=== PATIENT | female | born 1935 | race Caucasian/White ===

== ENCOUNTER → 2022-08-15 | Day surgery (SDC) | payer MEDICARE, MEDICAID ==
[~2022-08-15] VITALS: Ht 154.9 cm; Wt 60.8 kg
[~2022-08-15] MED LIST: ACETAMINOPHEN 325MG TABLET PO PRN; APIX5TAB4 PO; ASPI-1160 MT; ASPIRIN/SOD BICARB/CITRIC ACID 324MG TAB EFF ONE; ATOR20TA MT; ATROPINE SULFATE 1MG/10ML SYR IV PRN; FAMO40TA7 PO; FENTANYL CITRATE/PF 50MCG/ML 2ML VIAL ONE; HEPARIN SODIUM 1,000 UNIT/1ML VIAL IV ONE; HYDR12.54 MT; IODIXANOL 320MG/ML 100 ML BOTTLE IV ONE; LIDOCAINE HCL/PF 2% 20MG/ML 5 ML/VIAL ONE; LOSA100T32 MT; METF-414 PO; METF-873 MT; MIDAZOLAM HCL 2 MG/2 ML VIAL ONE; NICARDIPINE 100MCG/ML 10ML VIAL (CATH LAB) IV ONE; NITROGLYCERIN 50MCG/ML 10ML VIAL (CATH LAB) IV ONE; ONDANSETRON HCL 4MG/2ML INJ IV PRN; VERAPAMIL HCL 2.5 MG/1 ML 2ML VIAL IV ONE
== END | disposition home or self-care (01) ==
LOC: CCL 07:54
PROVIDERS: ATTEND Specialist
DX: I25.10 Atherosclerotic heart disease of native coronary artery without angina pectoris (principal); I10 Essential (primary) hypertension; E78.5 Hyperlipidemia, unspecified; E11.9 Type 2 diabetes mellitus without complications; I73.9 Peripheral vascular disease, unspecified; Z79.84 Long term (current) use of oral hypoglycemic drugs; Z79.82 Long term (current) use of aspirin; Z79.899 Other long term (current) drug therapy; Z98.890 Other specified postprocedural states
CPT/HCPCS: 82962; 93458; C1769; C1893; J1644; J2250; J3010; J3490; Q9967